=== PATIENT | male | born 1955 | race Caucasian/White ===

== ENCOUNTER 2022-07-03 21:15 | Observation (INO) | payer MEDICARE, SELFPAY ==
--- NOTE | 2022-07-03 21:13 | EKG12_ITS ---
Test Reason : DIZZINESS Blood Pressure : / mmHG Vent. Rate : 103 BPM Atrial Rate : 103 BPM P-R Int : 146 ms QRS Dur : 120 ms QT Int : 356 ms P-R-T Axes : 000 -25 003 degrees QTc Int : 466 ms Sinus tachycardia Indeterminate axis Low voltage QRS Right bundle branch block Abnormal ECG Confirmed by ISABEL DE SOUZA, ASHLEIGH ([id number]), editor trade journal BREANNE CURRY ([id number]) on 07/04/2022 2:01:37 PM Referred By: Confirmed By:ASHLEIGH HALL MD
[2022-07-03 21:16] VITALS: BP 151/84; PULSE 105; RESP 18; TEMP 36.6; O2SAT 98; BMI 35.5
--- NOTE | 2022-07-03 21:42 | CT_ITS ---
STUDY: CTA HEAD AND NECK WITH CONTRAST REASON FOR EXAM: Male, 66 years old. Vertigo after chiropractic manipulation 1 week ago RADIATION DOSAGE (If Supplied By Facility): CTDIvol = ( 31.31 ) mGy, DLP = ( 1677.93 ) mGycm TECHNIQUE: CT angiography was performed with a multi-detector CT scanner. Data acquisition was obtained from the skull base through the vertex following intravenous administration of IV 100mL Isovue-370. MIP images were reconstructed from the axial data set. Post-processing of the angiographic images was performed, with multiplanar reformation and 3D reconstruction. Individualized dose optimization techniques were used for this CT. COMPARISON: No relevant priors. FINDINGS: Normal bilateral petrous carotid arteries. Normal right cavernous carotid artery with a normal supraclinoid bifurcation. Normal left cavernous carotid artery with a normal supraclinoid bifurcation. Normal right A1 segments of the anterior cerebral artery. Normal left A1 segments of the anterior cerebral artery. Normal intact anterior communicating artery (ACOM). Normal bilateral A2 segments of the anterior cerebral arteries. Normal right M1 and M2 segments of the middle cerebral arteries, with a normal M1 bifurcation. Normal left M1 and M2 segments of the middle cerebral arteries, with a normal M1 bifurcation. There is non-visualization of the right posterior communicating artery (PCOM). There is non-visualization of the left posterior communicating artery (PCOM). Normal bilateral vertebral arteries. Normal basilar artery with a normal basilar bifurcation. The visualized bilateral superior cerebellar (SCA) arteries are normal. Normal bilateral P1, P2 and visualized P3 segments of the posterior cerebral arteries. There is no demonstrated aneurysm of the [place] of [place]. There is no demonstrated abnormality of the visualized brain. AORTIC ARCH: Normal visualized aortic arch. Normal origins of the brachiocephalic, left common carotid, and left subclavian arteries. RIGHT CAROTID ARTERIES: Normal right common carotid artery (CCA). Normal right common carotid bulb. Normal origin of the right internal carotid (ICA) artery without a hemodynamically significant stenosis. Normal visualized cervical portion of the right internal carotid artery. Normal origin of the right external carotid artery (ECA). LEFT CAROTID ARTERIES: Tortuous left common carotid artery (CCA). Normal left common carotid bulb. Normal origin of the left internal carotid (ICA) artery without a hemodynamically significant stenosis. Normal visualized cervical portion of the left internal carotid artery. Normal origin of the left external carotid artery (ECA). VERTEBRAL ARTERIES: Normal bilateral vertebral arteries. CT/CTA Head AND Neck W/ Contrast IMPRESSION: Normal CTA Head and neck with contrast. Electronically Signed: Tyrel Hernandez DO at 23:25 EDT ,
[2022-07-03 22:05] LABS: Absolute Lymphocyte Count 4.99 X10^3/uL (0.83-4.51); Absolute Neutrophil Count 4.8 X10^3/uL (2.0-7.7); Basophil# 0.09 X10^3/uL; Basophil% 0.8 % (0-1); Eosinophil# 0.69 X10^3/uL; Eosinophils% 5.9 % (0-5); Hematocrit 45.8 % (40-54); Hemoglobin 15.7 g/dL (13.0-16.5); Lymphocyte # 4.99 X10^3/ul (0.83-4.51); Mean Corp Hgb Conc 34.3 g/dL (32-36); Mean Corpuscular Hgb 27.8 pg (27.0-32.0); Mean Corpuscular Volume 81.1 fL (80-94); Monocyte# 0.97 X10^3/uL; Monocyte% 8.4 % (0-10); NRBC Flagged by Analyzer 0 % (0-5); Neutrophil # 4.84 X10^3/uL (2.7-7.7); Neutrophil % 41.6 % (47-70); Platelet Count 328 K/mm3 (150-450); RBC Distribution Width CV 12.2 % (11.6-14.6); RBC Distribution Width SD 35.9 fl (35.1-43.9); Red Blood Count 5.65 M/mm3 (4.6-6.2); White Blood Count 11.6 K/mm3 (4.4-11.0)
--- NOTE | 2022-07-03 22:26 | EX.ED.DYSGE1 ---
HPI History of Present Illness Chief Complaint: Weakness Detail of Chief Complaint: Vertigo Informant: patient and spouse/S.O. Onset/Context/Timing Onset: Hours Context: Sudden Onset (Onset 1 to 1.5 hours prior to arrival) Timing: Continuous Quality: Spinning Location: Not applicable Current Severity: Mild Maximum Severity: Severe Worsened by: Nothing Relieved by: Nothing Associated Symptoms Associated Symptoms: Nausea Narrative Narrative: Patient is a 66-year-old male with history of hypertension who saw a chiropractor last week for neck pain. He presents because of vertigo with nausea and diaphoresis that started approximate 1 hour prior to presentation. He denies headache. He denies double vision. He states his vision does not appear normal. He complains of pain posterior left side of his neck. He denies problems with speech or swallowing. He denies paresthesia, anesthesia or motor EXTR. He states he has problems with his balance and walking. There is no history of head trauma. He is not on an antithrombotic or anticoagulant. Prior similar symptoms: No Recent Illness/Hospitalization: No PFSH PFS Medical History Hypertension Home Medications amlodipine 07/03/22 [History Last Taken Unknown] lisinopril 20 mg tablet mg 07/03/22 [History Last Taken Unknown] Allergy/AdvReac Type Severity Reaction Status Date / Time No Known Allergies Allergy Verified 07/03/22 21:20 Surgical History no surgical history no surgical history Social History (Updated 07/03/22 @ 22:[address] Fred Coles MD) household members: spouse Smoking Status: Never smoker substance use type: does not use ROS ROS ED Constitutional Constitutional ED: Denies chills, fever(s) or sweats Eyes Eyes: Reports change in vision bilateral; Denies blurry vision or diplopia ENT ENT ED: Reports other Details: He denies decreased hearing or tinnitus ; Denies ear pain, rhinorrhea or sore throat Cardiovascular Cardiovascular: Denies chest pain, palpitations or racing heartbeat Respiratory/Chest Respiratory/Chest: Denies cough, dyspnea or dyspnea on exertion Gastrointestinal Gastrointestinal: Reports nausea; Denies abdominal pain, diarrhea or vomiting Genitourinary Genitourinary ED: Denies dysuria, hematuria or urinary frequency Musculoskeletal Musculoskeletal: Reports neck pain; Denies arthralgias, back pain or myalgias Integumentary Denies rash Neurologic Neurologic: Reports other Details: Vertigo ; Denies headache(s), paresthesias or weakness Psychiatric Psychiatric: Denies anxiety or depression Endocrine Endocrinology: Denies cold intolerance or heat intolerance Hematologic/Lymphatic Hematologic/Lymphatic: Reports systems reviewed and no addt'l complaints, except as documented EXAM Physical Exam Const Vital Signs: 07/03/22 21:16 07/03/22 21:29 07/03/22 23:04 Temperature 98 F Temperature Source Temporal Pulse Rate 105 H 98 Respiratory Rate 18 16 Respiratory Effort Normal Non-Labored Respiratory Pattern Normal Blood Pressure 151/84 H 155/82 H Blood Pressure Mean 106 106 Pulse Ox 98 94 Oxygen Delivery Method Room Air Room Air 07/03/22 23:52 Temperature Temperature Source Pulse Rate 90 Respiratory Rate 16 Respiratory Effort Respiratory Pattern Blood Pressure 141/71 H Blood Pressure Mean 94 Pulse Ox 94 Oxygen Delivery Method Room Air Positive well nourished, well developed and obese Constitutional Narrative: Patient appears flushed. Sclera is injected. General Appearance ED: well developed and NAD; Negative for cyanotic or diaphoretic Nutritional Appearance: obese HEENT Reports moist mucous membranes HEENT Narrative: Head is atraumatic normocephalic. Ears normal. External auditory canals normal. TMs are normal. Nares patent. Uvula is midline. There is no deviation with protrusion of the tongue. Eyes PERRL and EOMs intact bilaterally Eyes Narrative: There is no nystagmus. General Eye ED: Negative for pale conjunctiva or scleral icterus Neck no lymphadenopathy, supple and no JVD Chest Wall inspection of chest normal and palpation of chest normal Resp normal respiratory effort and clear to auscultation bilaterally Cardio regular rate, regular rhythm, S1 normal heart sound, S2 normal heart sound and no murmurs GI normal to inspection, nondistended, normoactive bowel sounds, non-tender, non-distended and no masses; Negative for hepatosplenomegaly Palpation: soft Back/Spine no CVA tenderness Cervical Spine: Negative for cervical spine tenderness Thoracic Spine / Upper Back: Negative for thoracic spinal tenderness Lumbar Spine / Lower Back: Negative for lumbar spinal tenderness Neuro oriented x3, CN's II-XII intact bilaterally and no sensory deficits noted Neuro Narrative: There is no dysmetria. There is no clonus or Babinski. NIH is 0. Hi Hat-Hallpike maneuver was negative. The hint test was not performed because he had chiropractic manipulation 1 week ago. Romberg is negative. Gait was not tested. Patient is still complaining of vertiginous symptoms. Sensorium / Orientation: alert Motor Exam: strength 5/5 throughout Psych mental status grossly normal Skin no rashes or lesions noted, no wounds and skin turgor normal Skin Narrative: Patient appears flushed. MDM MDM MDM Narrative Medical decision making narrative: With history of recent chiropractic visit manipulation and complaint of vertigo need to evaluate for vertebrobasilar dissection. CTA of the neck was ordered. CBC was obtained to assess platelet count. BMP to assess renal function. History & Record Review Additional record(s) reviewed:: No prior records Lab Data Attestation: I reviewed the patient's lab results. Lab results narrative: White count is slightly elevated with lymphocytosis. H&H is unremarkable. Basic metabolic panel reveals mild hypokalemia with a potassium of 3.2. Glucose is slightly evaded 129 with a normal CO2 anion gap. Labs: Laboratory Results - last 24 hr 07/03/22 07/03/22 21:42 21:42 WBC 11.6 H RBC 5.65 Hgb 15.7 Hct 45.8 MCV 81.1 MCH 27.8 MCHC 34.3 RDW Std Deviation 35.9 RDW Coeff of Susy 12.2 Plt Count 328 MPV 9.0 Immature Gran % (Auto) 0.300 Neut % (Auto) 41.6 L Lymph % (Auto) 43.0 H [place] % (Auto) 8.4 Eos % (Auto) 5.9 H Baso % (Auto) 0.8 Absolute Neuts (auto) 4.8 Absolute Lymphs (auto) 4.99 H Nucleated RBC % 0 Sodium 143 Potassium 3.2 L Chloride 106 Carbon Dioxide 26.0 Anion Gap 11 BUN 17 Creatinine 0.92 Estim Creat Clear Calc 72.24 Est GFR (MDRD) Af Amer 105 Est GFR (MDRD) Non-Af 87 BUN/Creatinine Ratio 18.4 Glucose 129 H Calcium 9.7 Radiography Diagnostic Testing: Clinical Impression(s) from Imaging Studies Head/Neck CTA 07/03/22 21:42 IMPRESSION: Normal CTA Head and neck with contrast. Electronically Signed: Tyrel Hernandez DO at 23:25 EDT Reading Location ID and State: [address] [place] [address] Tel [phone], Service support , Treatment and Re-Evaluation :: Informed his CTA of the head neck did not reveal evidence of dissection. Patient commented that after I informed him of tests that needed to be done and left the room he had return of his symptoms. Since the CTA of the head neck was negative HIT test was performed. HIT test was negative. Patient states his spinning got worse with change in position. Adry-Hallpike maneuver was repeated. Patient is symptomatic with nystagmus noted. There is initial upward deflection followed by fast component to the left. Nica maneuver was performed. Patient had improvement with head to the left. There was no change with head to the right. When he was in upright position he became severely vertiginous with significant nystagmus and nausea and vomiting. After 3 minutes patient report improvement. Will reassess in 5 minutes. Patient still had vertigo in upright position. It has improved but has not resolved. For this reason patient was given p.o. Valium since IV Valium is not available. Patient was reassessed at 0052. Patient still complaining of uneasiness and unsteadiness and balance being off. For this reason will call hospitalist for observation status. Discharge Plan Triage Chief Complaint: Weakness ED Provider: Fred Coles Dx/Rx/DC Orders Clinical Impression: Vertigo, Hypertension, Sinus tachycardia Prescriptions: No Action lisinopril 20 mg Tablet amlodipine Primary Care Provider: Avery Licona Referrals: Avery Licona MD [Primary Care Provider] - Disposition Disposition: Acute Care Hospital [facility]
[2022-07-03 22:33] LABS: Anion Gap 11 (5-15); BUN 17 mg/dL (7-18); BUN/Creat Ratio 18.4 RATIO (10-20); Calcium,Total 9.7 mg/dL (8.5-10.1); Chloride 106 mmol/L (98-107); Creatinine, Serum 0.92 mg/dL (0.70-1.30); EST Glomerular Filtration Rate 87 mL/min (>60); Est Glom Filt Rate - Afr Amer 105 mL/min (>60); Estimated Creatinine Clearance 72.24 ml/min; Glucose 129 mg/dL (74-106); Potassium 3.2 mmol/L (3.5-5.1); Sodium Level 143 mmol/L (136-145)
[2022-07-03 23:04] VITALS: BP 155/82; PULSE 98; RESP 16; O2SAT 94
[2022-07-03 23:52] VITALS: BP 141/71; PULSE 90; RESP 16; O2SAT 94
[2022-07-04] MEDS: Ondansetron 4 MG/2 ML Vial IV (00:04)
[2022-07-04] MEDS: diazePAM 5 MG Tablet 2.5 MG PO (00:28)
[2022-07-04 01:15] VITALS: BP 176/96; PULSE 88; RESP 16; TEMP 37.1; O2SAT 97
[2022-07-04 01:29] LABS: Magnesium 2.1 mg/dL (1.6-2.6)
--- NOTE | 2022-07-04 01:33 | HP.PCM_ITS ---
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 He denies any recent falls or head trauma. In the ED patient with persistent ongoing vertiginous symptoms; however, no 9 stag Ms. noted per ED staff upon their initial evaluation. In the ED Adry- Hallpike maneuver attempted and noted to be negative. NIH stroke scale was noted to be 0 also. Work-up in the ED included T98, heart rate 105, BP 151/84, respiratory rate 18, 98% on room air, CBC with WBC 11.6, hemoglobin 15.7, platelet 328 with lymphopenia, BMP with potassium 3.2, glucose 129 that was not marked appearing, CTA head and neck with no acute findings, EKG with sinus tachycardia with no acute evidence of ischemia. Following unremarkable CTA head and neck ED physician did perform HIT testing which was negative with a spinning sensation notably worsening with change in position within a repeat Dary-Hallpike maneuver performed with notable symptoms with also nystagmus noted to be initially upward deflection followed by fast component to the left with an Nica maneuver performed with improvement with head to the left. Unfortunately when patient then was in the upright position had recurrent significant vertiginous symptoms with nystagmus and nausea and emesis. He transiently improved but given ongoing mild symptoms was administered Valium and upon repeat assessment still had mild persistent symptoms although notably improved but still some difficulty with his gait in the ED patient ministered Zofran 4 mg IV x1 as well as Valium 2.5 mg p.o. x1. Upon hospitalist evaluation patient significantly improving and was able to even sit upright and forward during the evaluation which was not possible previously. [facility] Medical History (Updated 07/04/22 @ 01:[address] Karen Cardona MD) HLD (hyperlipidemia) Hypertension Obesity KRISTIAN on CPAP Home Medications amlodipine 10 mg tablet 10 mg PO DAILY 07/04/22 [History Last Taken Unknown] lisinopril 10 mg tablet 10 mg PO DAILY 07/04/22 [History Last Taken Unknown] lovastatin 20 mg tablet 20 mg PO QHS 07/04/22 [History Last Taken Unknown] Allergy/AdvReac Type Severity Reaction Status Date / Time No Known Allergies Allergy Verified 07/03/22 21:20 Family History (Updated 07/04/22 @ 01:[address] Karen Cardona MD) Mother CAD (coronary artery disease) Myocardial infarction age 66 secondary to [place]. Father Prostate cancer Surgical History (Updated 07/04/22 @ 01:[address] Karen Cardona MD) History of tonsillectomy and adenoidectomy Surgical History no surgical history Social History (Updated 07/04/22 @ 01:[address] Karen Cardona MD) household members: spouse Smoking Status: Never smoker alcohol intake: never substance use type: does not use ROS ROS Narrative Admission Review of Systems: CONSTITUTIONAL: No weight loss, fever, chills, +weakness or fatigue. HEENT: + Vertiginous symptoms, left posterior neck discomfort, nystagmus noted w/ Adry-Hallpike and Nica maneuvers. Eyes: No visual loss, blurred vision, double vision or yellow sclerae. Ears, Nose, Throat: No hearing loss, sneezing, congestion, runny nose or sore throat. SKIN: No rash or itching, lesions, wounds. CARDIOVASCULAR: No chest pain, chest pressure or chest discomfort, palpitations, edema, orthopnea, syncopal events. RESPIRATORY: No shortness of breath, cough or sputum, wheezing, hemoptysis. GASTROINTESTINAL: + anorexia, nausea. No vomiting or diarrhea, abdominal pain, melena, BRBPR. GENITOURINARY: No dysuria, frequency, urgency or retention. NEUROLOGICAL: + Left posterior neck discomfort, vertiginous symptoms, nystagmus noted w/ Wilson-Hallpike and Nica maneuvers, difficulty with ambulation/balance, no headache, syncope, paralysis, numbness or tingling in the extremities, focal weakness, change in bowel or bladder control, seizure. MUSCULOSKELETAL: + muscle, back pain, joint pain or stiffness. HEMATOLOGIC: No anemia, bleeding or bruising. LYMPHATICS: No enlarged nodes. No history of splenectomy. PSYCHIATRIC: No history of depression or anxiety. ENDOCRINOLOGIC: No reports of sweating, cold or heat intolerance. No polyuria or polydipsia. ALLERGIES: No history of asthma, hives, eczema or rhinitis. Vital Signs Vital Signs Vital Signs: 07/03/22 21:16 07/03/22 21:29 07/03/22 23:04 Temperature 98 F Temperature Source Temporal Pulse Rate 105 H 98 Respiratory Rate 18 16 Respiratory Effort Normal Non-Labored Respiratory Pattern Normal Blood Pressure 151/84 H 155/82 H Blood Pressure Mean 106 106 Pulse Ox 98 94 Oxygen Delivery Method Room Air Room Air 07/03/22 23:52 Temperature Temperature Source Pulse Rate 90 Respiratory Rate 16 Respiratory Effort Respiratory Pattern Blood Pressure 141/71 H Blood Pressure Mean 94 Pulse Ox 94 Oxygen Delivery Method Room Air Weight Weight: 220 lb 3.869 oz Body Mass Index (BMI) 35.5 Physical Exam Narrative Physical Examination: General: Awake, alert, oriented x 3 and cooperative, seated upright in the ED bed, fatigued, even during evaluation significant improvement, able to sit up and lean forward without nausea and emesis or nystagmus which had been occurring previously, unfortunately previous bouts of emesis evident with emesis over his extremities. Skin: Normal color, normal turgor, no icterus, no cyanosis. HEENT: AT/NC, EOMI, PERRLA, dry MM, no carotid bruits or JVD noted. Lungs: CTA bilaterally, moderate effort, mild decrease BL bases, no rales, ronchi or wheezing. Heart: Improving, currently regular rate and rhythm; no gallop, rub audible. Abdomen: Soft, obese, NTTP, ND, distant normal BS, no HSM. Extremities: No cyanosis, clubbing, or edema. Neurological: Patient awake, alert, oriented as noted, cognitive function intact; pupils equally reactive to light and accommodation, cranial nerves grossly normal, moving all 4 extremities, no focal deficits, strength improving, patient able to sit up and lean forward with head down during evaluation with no recurrent nystagmus or vertiginous symptoms which she had not been able to do prior. Psychiatric: Affect appears improving, fatigued otherwise normal currently, no acute evidence of depressive or anxiety feelings. Results Lab / Micro Data Result Diagrams: 07/03/22 21:42 07/03/22 21:42 Labs: Laboratory Results - last 24 hr 07/03/22 21:42: WBC 11.6 H, RBC 5.65, Hgb 15.7, Hct 45.8, MCV 81.1, MCH 27.8, MCHC 34.3, RDW Std Deviation 35.9, RDW Coeff of Susy 12.2, Plt Count 328, MPV 9 .0, Immature Gran % (Auto) 0.300, Neut % (Auto) 41.6 L, Lymph % (Auto) 43.0 H, [place] % (Auto) 8.4, Eos % (Auto) 5.9 H, Baso % (Auto) 0.8, Absolute Neuts (auto) 4.8, Absolute Lymphs (auto) 4.99 H, Nucleated RBC % 0 07/03/22 21:42: Sodium 143, Potassium 3.2 L, Chloride 106, Carbon Dioxide 26.0, Anion Gap 11, BUN 17, Creatinine 0.92, Estim Creat Clear Calc 72.24, Est GFR (MDRD) Af Amer 105, Est GFR (MDRD) Non-Af 87, BUN/Creatinine Ratio 18.4, Glucose 129 H, Calcium 9.7 Radiology Impression Head/Neck CTA 07/03/22 21:42 IMPRESSION: Normal CTA Head and neck with contrast. 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 #1. Vertigo, suspected BPPV: Will admit to medical surgical floor, will maintain initiate on Valium given excellent response with significant improvem ent even upon hospitalist evaluation in the ED, will maintain on fall precautions, PT assessment will be requested and if necessary may need vestibular therapy, if patient's symptoms are not improving may necessitate then further imaging with MRI of the brain although this is unexpected given he is already improved so much. #2. Hypokalemia: Admission K+ 3.2, magnesium level requested, supplementation given, repeat level in AM. #3. Hyperglycemia, mild: Admission glucose 139, hemoglobin A1c pending. #4. Hypertension: Will continue home amlodipine and lisinopril regimen, PRN IV hydralazine. #5. Hyperlipidemia: We will continue patient on statin therapy. #6. Obesity: Weight loss and lifestyle changes encouraged. #7. KRISTIAN: We will temporarily hold CPAP usage given recent nausea and emesis bouts to be cautious. #8. DVT prophylaxis: Low risk. Admission Evaluation Time spent evaluating chart, patient history, patient evaluation, care planning and discussion with specialists: 55 minutes. Charges/Coding Visit Charges Inpatient E&M: 25467 Init Hosp L2
[2022-07-04 01:42] VITALS: BMI 32.1
[2022-07-04] MEDS: 0.9% Normal Saline 1,000 ML 125 ML IV ×2 (02:00→09:09)
[2022-07-04] MEDS: Potassium Chloride Oral Tablet 20 MEQ 40 MEQ PO (02:00)
[2022-07-04 02:02] VITALS: BP 121/77; PULSE 75; RESP 18; TEMP 37.1; O2SAT 97
[2022-07-04] MEDS: diazePAM 2 MG Tablet PO (05:19)
[2022-07-04 06:40] LABS: Absolute Lymphocyte Count 1.59 X10^3/uL (0.83-4.51); Absolute Neutrophil Count 8.1 X10^3/uL (2.0-7.7); Basophil# 0.03 X10^3/uL; Basophil% 0.3 % (0-1); Eosinophil# 0.01 X10^3/uL; Eosinophils% 0.1 % (0-5); Hematocrit 38.9 % (40-54); Hemoglobin 13.1 g/dL (13.0-16.5); Lymphocyte # 1.59 X10^3/ul (0.83-4.51); Lymphocyte % 15.4 % (19-41); Mean Corp Hgb Conc 33.7 g/dL (32-36); Mean Corpuscular Volume 83.1 fL (80-94); Mean Platelet Vol. 8.8 fl (6.2-12.0); Monocyte% 5.8 % (0-10); NRBC Flagged by Analyzer 0 % (0-5); Neutrophil # 8.08 X10^3/uL (2.7-7.7); Neutrophil % 78.2 % (47-70); Platelet Count 272 K/mm3 (150-450); RBC Distribution Width CV 12.5 % (11.6-14.6); RBC Distribution Width SD 37.7 fl (35.1-43.9); Red Blood Count 4.68 M/mm3 (4.6-6.2); White Blood Count 10.3 K/mm3 (4.4-11.0)
[2022-07-04 07:05] LABS: AST(SGOT) 15 U/L (15-37); Alanine Aminotransfer ALT/SGPT 26 U/L (16-61); Albumin, Serum 3.4 g/dL (3.2-5.0); Alkaline Phosphatase 77 U/L (45-117); Anion Gap 9 (5-15); BUN 14 mg/dL (7-18); Calcium,Total 8.5 mg/dL (8.5-10.1); Chloride 109 mmol/L (98-107); EST Glomerular Filtration Rate 120 mL/min (>60); Est Glom Filt Rate - Afr Amer 145 mL/min (>60); Estimated Creatinine Clearance 94.94 ml/min; Globulin 3.3 g/dL (2.2-4.2); Glucose 113 mg/dL (74-106); Protein, Total 6.7 g/dL (6.4-8.2); Sodium Level 141 mmol/L (136-145)
[2022-07-04 08:39] LABS: Hemoglobin A1c 5.6 % (3.8-5.6)
[2022-07-04 08:54] VITALS: BP 141/92; PULSE 92; RESP 18; TEMP 36.6; O2SAT 98
[2022-07-04] MEDS: Lisinopril 10 MG Tablet PO (09:08)
[2022-07-04] MEDS: amLODIPine 10 MG Tablet PO (09:08)
[2022-07-04 14:04] VITALS: BP 132/79; PULSE 87; RESP 18; TEMP 36.7; O2SAT 97
--- NOTE | 2022-07-04 14:06 | DCINST_ITS ---
Discharge Instructions Diet Discharge Diet: No restrictions Activity Discharge Activity: Return to Normal Activity Dressing / Incision Call your doctor if you observe: Fever of 101 or Higher, Shortness of breath, Dizziness, Fainting spells, Swelling in the ankles, Chest pain and Increased palpitations (irregular heartbeat) Follow Up Care Test Results: Test results from this visit will be discussed in further detail at your follow- up appointment, if applicable. Discharge Plan Admission Admit Date/Time: 07/04/22 01:01 Attending Provider: John Henao Primary Care Provider: Avery Licona Consulting Providers: Karen Cardona Discharge Orders/Prescriptions Prescriptions: New meclizine 12.5 mg tablet 12.5 mg PO TID PRN (Reason: dizziness) Qty: 10 0RF Continued amlodipine 10 mg tablet 10 mg PO DAILY lisinopril 10 mg tablet 10 mg PO DAILY lovastatin 20 mg tablet 20 mg PO QHS Referrals / Follow Up: Avery Licona MD [Primary Care Provider] - Within 1 Week Disposition Disposition (needs filled in before D/C Order can be placed): Home, Self Care
--- NOTE | 2022-07-04 14:11 | PCM.DC.SUM ---
Providers Date of Admission: 07/04/22 Primary Care Physician: Dr. 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 He denies any recent falls or head trauma. In the ED patient with persistent ongoing vertiginous symptoms; however, no 9 stag Ms. noted per ED staff upon their initial evaluation. In the ED [place]-Hallpike maneuver attempted and noted to be negative.? NIH stroke scale was noted to be 0 also. Work-up in the ED included T98, heart rate 105, BP 151/84, respiratory rate 18, 98% on room air, CBC with WBC 11.6, hemoglobin 15.7, platelet 328 with lymphopenia, BMP with potassium 3.2, glucose 129 that was not marked appearing, CTA head and neck with no acute findings, EKG with sinus tachycardia with no acute evidence of ischemia.? Following unremarkable CTA head and neck ED physician did perform HIT testing which was negative with a spinning sensation notably worsening with change in position within a repeat [place]-Hallpike maneuver performed with notable symptoms with also nystagmus noted to be initially upward deflection followed by fast component to the left with an Nica maneuver performed with improvement with head to the left.? Unfortunately when patient then was in the upright position had recurrent significant vertiginous symptoms with nystagmus and nausea and emesis.? He transiently improved but given ongoing mild symptoms was administered Valium and upon repeat assessment still had mild persistent symptoms although notably improved but still some difficulty with his gait in the ED patient ministered Zofran 4 mg IV x1 as well as Valium 2.5 mg p.o. x1.? Upon hospitalist evaluation patient significantly improving and was able to even sit upright and forward during the evaluation which was not possible previously. Hospital Course: 1. Vertigo likely BPPV/HTN/HLD?66-year-old male presented to the hospital after helping his move her parents into assisted living. He thinks he might have been a little bit dehydrated and presented with significant dizziness. In the ER [place]-Hallpike maneuver was attempted and found to be negative. He did have significant improvement with IV fluids and today denies any significant dizziness with change in position or anything. Given his improvement I do not think this necessary to proceed with an MRI, can resume his home blood pressure medications as well as his statin. We will provide him a prescription for meclizine as needed for dizziness while at home. I do recommend that he follow-up with his PCP in 3 to 5 days for outpatient monitoring. 2. Anxiety?he states that he suffers from significant anxiety. He states that he used to be on Zoloft in the 90s which seemed to help. I discussed with him the benefits of medication versus therapy versus physical activity. He will discuss with his PCP about restarting Zoloft and possibly finding a therapist. Physical Exam Narrative General: Alert, Oriented x3, Cooperative, No apparent distress HEENT: Atraumatic, PERRLA, EOMI, Normocephalic Oral: Moist Mucosa Neck: Supple, No JVD Lungs: Clear to auscultation, Normal air movement, No rhonchi, No wheeze, No rales Cardiovascular: Regular rate, Regular Rhythm, Normal S1, Normal S2, No murmurs Abdomen: Soft, Non Tender, Non-Distended, No Hepato-splenomegaly Extremities: No edema, Capillary Refill Less than 3 Seconds Skin: No rashes, No breakdown Musculoskeletal: No Tenderness to Palpation of Joints or Extremities Neurological: Cranial nerves II-XII grossly intact, Motor Exam 5/5 strength throughout, Sensory exam intact to light touch and pain, no nystagmus Psych/Mental Status: Normal Affect, Appropriate Weight / BMI Weight Weight: 199 lb Body Mass Index (BMI) 32.1 ABG / Lab / Microbiology Data Result Diagrams: 07/04/22 06:10 07/04/22 06:10 Laboratory: Laboratory Results - last 24 hr 07/03/22 21:42: WBC 11.6 H, RBC 5.65, Hgb 15.7, Hct 45.8, MCV 81.1, MCH 27.8, MCHC 34.3, RDW Std Deviation 35.9, RDW Coeff of Susy 12.2, Plt Count 328, MPV 9.0, Immature Gran % (Auto) 0.300, Neut % (Auto) 41.6 L, Lymph % (Auto) 43.0 H, [place] % (Auto) 8.4, Eos % (Auto) 5.9 H, Baso % (Auto) 0.8, Absolute Neuts (auto) 4.8, Absolute Lymphs (auto) 4.99 H, Nucleated RBC % 0 07/03/22 21:42: Sodium 143, Potassium 3.2 L, Chloride 106, Carbon Dioxide 26.0, Anion Gap 11, BUN 17, Creatinine 0.92, Estim Creat Clear Calc 72.24, Est GFR (MDRD) Af Amer 105, Est GFR (MDRD) Non-Af 87, BUN/Creatinine Ratio 18.4, Glucose 129 H, Calcium 9.7 07/03/22 21:42: Magnesium 2.1 07/04/22 06:10: WBC 10.3, RBC 4.68, Hgb 13.1, Hct 38.9 L, MCV 83.1, MCH 28.0, MCHC 33.7, RDW Std Deviation 37.7, RDW Coeff of Susy 12.5, Plt Count 272, MPV 8.8, Immature Gran % (Auto) 0.200, Neut % (Auto) 78.2 H, Lymph % (Auto) 15.4 L, [place] % (Auto) 5.8, Eos % (Auto) 0.1, Baso % (Auto) 0.3, Absolute Neuts (auto) 8.1 H, Absolute Lymphs (auto) 1.59, Nucleated RBC % 0 07/04/22 06:10: Sodium 141, Potassium 4.0, Chloride 109 H, Carbon Dioxide 23.0, Anion Gap 9, BUN 14, Creatinine 0.70, Estim Creat Clear Calc 94.94, Est GFR (MDRD) Af Amer 145, Est GFR (MDRD) Non-Af 120, BUN/Creatinine Ratio 20.0, Glucose 113 H, Calcium 8.5, Total Bilirubin 0.70, AST 15, ALT 26, Alkaline Phosphatase 77, Total Protein 6.7, Albumin 3.4, Globulin 3.3, Albumin/Globulin Ratio 1.0 07/04/22 06:10: Hemoglobin A1c 5.6 Radiography Diagnostic Testing: Radiology Impression Head/Neck CTA 07/03/22 21:42 IMPRESSION: Normal CTA Head and neck with contrast. Electronically Signed: Tyrel Hernandez DO at 23:25 EDT Reading Location ID and State: [address] [place] [address] Tel [phone], Service support , D/C Instructions Discharge Diet: No restrictions Call your doctor if you observe: Fever of 101 or Higher, Shortness of breath, Dizziness, Fainting spells, Swelling in the ankles, Chest pain and Increased palpitations (irregular heartbeat) Meaningful Use Info Meaningful Use Diagnoses (Choose all that apply): None applicable Discharge Plan Admission Admit Date/Time: 07/04/22 01:01 Attending Provider: John Henao Primary Care Provider: Avery Licona Consulting Providers: Karen Cardona Discharge Orders/Prescriptions Prescriptions: New meclizine 12.5 mg tablet 12.5 mg PO TID PRN (Reason: dizziness) Qty: 10 0RF Continued amlodipine 10 mg tablet 10 mg PO DAILY lisinopril 10 mg tablet 10 mg PO DAILY lovastatin 20 mg tablet 20 mg PO QHS Referrals / Follow Up: Avery Licona MD [Primary Care Provider] - Within 1 Week Disposition Disposition (needs filled in before D/C Order can be placed): Home, Self Care Charges/Coding Visit Charges Inpatient E&M: 87383 Disch Hosp >30min
--- NOTE | 2022-07-04 14:20 | CASEMGMT ---
Addendum entered by Shruti Rodriguez 07/04/22 14:35: Therapist recommended outpt vestibular therapy. Obtained rx and given to pt. Pt denies further needs at this time. Original Note: EDEL LO into pt room. Pt is interested in vestibular therapy. Discussed getting rx for this and pt states he would like it in case he needs it. Therapy has not worked with pt. EDEL LO asked PT to eval. Pt appreciative.
--- NOTE | 2022-07-04 16:30 | PHA.DC.MR ---
Pharmacy Service has performed discharge medication reconciliation for this patient. The patient's discharge medication list was reviewed for discrepancies and discrepancies were resolved. Medication education papers prepared, unable to phone counselor before D/C. Home Medications amlodipine 10 mg tablet 10 mg PO DAILY 07/04/22 lisinopril 10 mg tablet 10 mg PO DAILY 07/04/22 lovastatin 20 mg tablet 20 mg PO QHS 07/04/22 meclizine 12.5 mg tablet 12.5 mg PO TID PRN dizziness #10 tabs 07/04/22
== END 2022-07-04 16:00 | disposition home or self-care (01) ==
LOC: ED 07-04 00:54 → MS3 07-04 03:29
PROVIDERS: Admitting Provider Family Medicine; Emergency Provider Emergency Medicine; PCP Family Medicine; Visit Provider Family Medicine
DX: R42 Dizziness and giddiness (principal); H53.9 Unspecified visual disturbance; R53.1 Weakness; R11.2 Nausea with vomiting, unspecified; E78.5 Hyperlipidemia, unspecified; I10 Essential (primary) hypertension; R00.0 Tachycardia, unspecified; Z79.899 Other long term (current) drug therapy; F41.9 Anxiety disorder, unspecified; G47.33 Obstructive sleep apnea (adult) (pediatric); E87.6 Hypokalemia; E66.9 Obesity, unspecified; Z68.32 Body mass index [BMI] 32.0-32.9, adult; R73.9 Hyperglycemia, unspecified
CPT/HCPCS: 36415; 70496; 70498; 80048; 80053; 83036; 83735; 85025; 93005; 96361; 96374; 97161; 99221; 99285; J7030; Q9967; A4216; G0378; J2405